=== PATIENT | female | born 1980 | race Caucasian/White ===

== ENCOUNTER 2019-03-02 08:34 | Outpatient (CLI) | payer OTHER ==
[~2019-03-02 08:34] MED LIST: ACIDOPHILUS1 EAC1 PO; FLAGYL500MG PO; PRENATAL TABLE1 EAC1 PO; ULTRACET PO
== END 2019-03-02 08:39 | disposition home or self-care (01) ==
LOC: LAB 08:34
DX: K56.60 Unspecified intestinal obstruction (principal); K56.2 Volvulus; R14.1 Gas pain; R14.0 Abdominal distension (gaseous)

== ENCOUNTER 2019-03-07 06:15 | Day surgery (SDC) | payer OTHER | END 2019-03-07 10:10 | disposition home or self-care (01) | LOC: AMB-ENDOS 06:15 | DX: K64.8 Other hemorrhoids (principal) ==